=== PATIENT | male | born 1990 | race African-American/Black ===

== ENCOUNTER 2023-04-14 20:41 | Emergency (ER) | payer BC, SELFPAY ==
[2023-04-14] MEDS ORDERED: Ketorolac Tromethamine 30 MG/ML VIAL ONE (23:24)
[2023-04-14] MEDS ORDERED: Bupivacaine 0.25% 10 ML VIAL ONE (23:25)
== END 2023-04-15 00:52 | disposition home or self-care (01) ==
LOC: ERS 20:41
DX: K04.7 Periapical abscess without sinus (principal)
CPT/HCPCS: 41800; 96372; J1885; S0020